=== PATIENT | male | born 1950 | race Caucasian/White ===

== ENCOUNTER → 2024-02-02 06:31 | Day surgery (SDC) | payer OTHER, SELFPAY ==
[2024-02-02 13:39] LABS: Glucose - Point of Care 134 mg/dl (70-99)
== END ==
LOC: GI 06:31
PROVIDERS: ATTENDING PHYSICIAN Internal Medicine
DX: Z12.11 Encounter for screening for malignant neoplasm of colon (principal); D12.2 Benign neoplasm of ascending colon; D12.3 Benign neoplasm of transverse colon; D12.5 Benign neoplasm of sigmoid colon; D12.8 Benign neoplasm of rectum; K57.30 Diverticulosis of large intestine without perforation or abscess without bleeding; K64.9 Unspecified hemorrhoids; Z86.0101 Personal history of adenomatous and serrated colon polyps; Z80.0 Family history of malignant neoplasm of digestive organs
CPT/HCPCS: 45385; 45380; 45381; 88305; 82962

== ENCOUNTER 2024-02-10 06:31 | Day surgery (SDC) | payer OTHER, SELFPAY ==
[2024-02-10 08:31] LABS: Glucose - Point of Care 153 mg/dl (70-99)
[2024-02-10 08:38] VITALS: BP 136/91
[2024-02-10 08:55] VITALS: BMI 28.8
[2024-02-10 08:56] VITALS: BMI 28.8
[2024-02-10 10:50] LABS: Glucose - Point of Care 163 mg/dl (70-99)
[2024-02-10 13:12] VITALS: BP 116/79
[2024-02-10 13:15] VITALS: BP 117/75
[2024-02-10 13:30] VITALS: BP 105/76
[2024-02-10 13:39] VITALS: BP 120/78
== END 2024-02-10 14:05 | disposition home or self-care (01) ==
LOC: SDS 06:31
PROVIDERS: ATTENDING PHYSICIAN Internal Medicine Gastroenterology
DX: D12.2 Benign neoplasm of ascending colon (principal); D12.3 Benign neoplasm of transverse colon; K64.0 First degree hemorrhoids
CPT/HCPCS: 45390; 45385; 88305; 82962

== ENCOUNTER 2024-09-27 06:27 | Day surgery (SDC) | payer OTHER, SELFPAY ==
[2024-09-27 07:13] LABS: Glucose - Point of Care 135 mg/dl (70-99)
== END 2024-09-27 08:57 | disposition home or self-care (01) ==
LOC: GI 06:27
PROVIDERS: ATTENDING PHYSICIAN Internal Medicine
DX: Z12.11 Encounter for screening for malignant neoplasm of colon (principal); K64.9 Unspecified hemorrhoids; K57.30 Diverticulosis of large intestine without perforation or abscess without bleeding; Z80.0 Family history of malignant neoplasm of digestive organs; D12.3 Benign neoplasm of transverse colon; K63.5 Polyp of colon; Z86.0101 Personal history of adenomatous and serrated colon polyps
CPT/HCPCS: 45385; 82962; 88305